=== PATIENT | male | born 1955 | race Hispanic/Latino ===

== ENCOUNTER 2019-01-27 15:15 | Emergency (ER) | payer SELFPAY ==
--- NOTE | 2019-01-27 15:47 | RAD ---
THREE VIEWS OF THE LEFT HAND: 01/27/19 COMPARISON: None. HISTORY: Lawnmower injury, laceration. FINDINGS: There is a soft tissue laceration at the distal tip of the fourth finger. No associated radiopaque fo reign body. There appears to be a probable nailbed injury in this region. There may be a punctate fra cture at the tip of the fourth distal phalanx. There is probable soft tissue injury involving the dis ava aspect of the third finger as well. No evidence for dislocation. IMPRESSION: Soft tissue injury involving the distal aspect of the third and fourth fingers. Punctate radiodensity on the lateral examination adjacent to the distal tip of the fourth distal phalanx may represent a t iny associated chip fracture. POS: [facility]
[2019-01-27] MEDS ORDERED: Lidocaine 1% (PF) 30 ML VIAL ONE (18:04)
[2019-01-27] MEDS ORDERED: Adacel (T-DAP) 0.5 ML SYRINGE ONE ×2 (19:05→20:03)
[2019-01-27] MEDS ORDERED: HYDROcodone/Acetaminophen 5/325 mg Tablet ONE (20:03)
[2019-01-27] MEDS ORDERED: CEFAZOLIN 1 GM VIAL ONE (20:03)
[2019-01-27] MEDS ORDERED: Sterile Water 10 ML ONE (20:09)
--- NOTE | 2019-01-28 00:08 | CON ---
DATE OF CONSULTATION: 01/27/2019 TIME: 1939. HISTORY OF PRESENT ILLNESS: Mr. Jordan is 63-year-old male, status post injury from a saw blade while pulling grass out, cut the tip of his finger. The patient is currently in the ER. Pain is 10/10. Received a block per Anesthesia. PAST MEDICAL HISTORY: Includes coronary artery disease, hypertension, [place]. He has previous history of 3 cardiac stents placed, right shoulder surgery that is nonspecified, and cholecystectomy. ALLERGIES: THE PATIENT HAS ALLERGIES TO MORPHINE. SOCIAL HISTORY: He does smoke. He denies illicit drug use. The patient is a pack-a-day smoker. MEDICATIONS: Aspirin, metoprolol, lisinopril, Plavix, simvastatin, hydrocodone. PHYSICAL EXAMINATION: VITAL SIGNS: 142/67, 95, 18, 97.9. Pain is 10/10. 96% on room air. GENERAL: Alert male, in no acute distress, resting comfortably in bed. X-rays of his left hand show a small flake off the tip of his ring finger and a soft-tissue laceration on his middle finger. The patient is able to flex and extend the fingers. His sensation is grossly intact. He has palpable pulses. Soft compartments. IMPRESSION: Distal tip tuft, no bony avulsion. Partial amputation of the ring finger and laceration of the middle finger. ASSESSMENT AND PLAN: I discussed with the ER. I just told to wash out the wound, made sure his tetanus is up-to-date. Gave him Ancef and sent home with Keflex. I tacked the skin closed to cover the soft tissues. I do not feel the exposed bone. I feel like the soft tissue is sufficient to close. If we need to, we can do amputation in the future. He will close the other finger. I discussed given his history of smoking that he has a risk of needing further amputation. Discussed smoking cessation to improve patient's outcome. He understands this and he will follow up with me in a week for wound checks. Job ID: [id number]
== END 2019-01-27 20:22 | disposition home or self-care (01) ==
LOC: ERS 15:15
DX: S68.115A Complete traumatic metacarpophalangeal amputation of left ring finger, initial encounter (principal); I10 Essential (primary) hypertension; I25.2 Old myocardial infarction; F17.210 Nicotine dependence, cigarettes, uncomplicated; Z79.82 Long term (current) use of aspirin; Z71.6 Tobacco abuse counseling; Z79.899 Other long term (current) drug therapy; Z79.1 Long term (current) use of non-steroidal anti-inflammatories (NSAID); W45.8XXA Other foreign body or object entering through skin, initial encounter
CPT/HCPCS: 12002; 90471; 90715; 96372; 99406; J0690; J2001